=== PATIENT | male | born 1990 | race Caucasian/White ===

== ENCOUNTER 2016-12-29 13:05 | Emergency (ER) | payer OTHER ==
--- NOTE | 2016-12-29 13:27 | ERNOTE ---
Abdominal HPI - Narrative Date of Service: 12/29/16 - General Chief Complaint: Abdominal Pain Time Seen by Provider: 12/29/16 13:15 Source: patient Exam Limitations: no limitations - Immun/Allergies/Home Medications Immunizatons: IMMUNIZATION HX Immunizations Up to Date Yes History of Influenza Vaccine No Allergies/Adverse Reactions: Allergies iodine Allergy (Verified 12/29/16 13:21) Home Medications: HOME MEDICATIONS Lansoprazole/Amoxiciln/Clarith [[id number]] 1 each PO BID # 28 combo..pkg 12/29/16 [Last Taken Unknown] - History of Present Illness Narrative: Pt. comes in with c/o nausea, vomiting, and abdominal pain fotr 24 hours after he drank too much two nights ago. Pt. states that when it started yesterday he thought he had a hangover but it has not changed despite it being over 24 hours. Pt. denies any SOB, CP, diarrhea, fever, but does state that he has tremors and chills. Pt. states that he binge drinks for three days a week but does not drink at all the other days of the week. Review of Systems - Review of Systems Constitutional: Present: no symptoms reported. Absent: fever, chills, weakness , fatigue, malaise EYE: Present: no symptoms reported ENT: Present: no symptoms reported Respiratory: Present: no symptoms reported. Absent: shortness of breath, cough , wheezing Cardiology: Present: no symptoms reported. Absent: chest pain, palpitations, edema Gastrointestinal/Abdominal: Present: nausea, vomiting, diarrhea, abdominal pain Genitourinary: Present: no symptoms reported Musculoskeletal: Present: no symptoms reported. Absent: back pain, joint pain Neurological: Present: no symptoms reported. Absent: headache, dizziness/light- headedness, numbness, tingling All Other Systems: All systems neg except as marked - Patient's Past Medical History Patient History - Medical: Alcohol Abuse, Anxiety, Depression - Family History Father Family History - Cardiac/Respiratory: Other - Social History Smoking Status: Current every day smoker Have you smoked in the past 12 months: Yes - Immunizations Immunizations Up to Date: Yes History of Influenza Vaccine: No Physical Exam - Physical Exam General Appearance: Present: wd/wn, alert, no apparent distress Eye Exam: Normal inspection: bilateral, PERRL: bilateral, EOMI: bilateral Ears, Nose, Throat: Present: normal ENT inspection, normal pharynx Neck: Present: normal inspection, nontender. Absent: lymphadenopathy (R), lymphadenopathy (L) Respiratory: Present: no respiratory distress, normal breath sounds, no accessory muscle use, chest nontender, lungs clear Cardiovascular/Chest: Present: regular rate, rhythm, no murmur, normal peripheral pulses Gastrointestinal/Abdominal: Present: tenderness - mid epigastric RUQ, hepatomegaly. Absent: McBurney sign, Obturator sign, Guillermo sign Back Exam: Present: normal inspection, normal range of motion, no CVA tenderness , no vertebral tenderness Extremity Exam: Present: normal inspection, non-tender, normal range of motion, no edema Neurological Exam: Present: alert, oriented, normal mood/affect, no motor/ sensory deficits, other - tremors BUE Skin Exam: Present: diaphoresis, pallor ED Progress - Results and Orders Patient's Lab Results:: I have reviewed the patient's lab results. - Vital Signs Patient's Vital Signs:: I have reviewed the patient's vital signs. Vital Signs: Vital Signs 12/29/16 13:13 Temperature 37.0 C Pulse Rate 113 H Respiratory 20 Rate Blood Pressure 157/99 O2 Sat by Pulse 96 Oximetry - X-Ray X-Ray #1 X-Ray: abdomen Interpretation: Reviewed by me X-ray Comments: FINDINGS: Abdomen Flat W/ Upright *: No subdiaphragmatic free air. No abnormal dilation of large or small bowel. There is a small 3 mm calcification which projects over the right side of the abdomen. Osseous structures are intact. Incidental note of what appears to be mild degenerative changes of the bilateral hips. The morphology of the proximal femur/femoral head suggests possible femoral acetabular impingement. IMPRESSION: 1. Nonobstructive bowel gas pattern. 2. Indeterminate right-sided abdominal calcification. 3. Additional comments as above. Electronically signed by Alicia Wise M.D.. - Progress/Reassessment Chief Complaint: Abdominal Pain Progress:: Pain free at discharge Departure - Departure Clinical Impression: Gastritis Qualifiers: Gastritis type: alcoholic Chronicity: chronic Gastritis bleeding: without bleeding Qualified Code(s): K29.20 - Alcoholic gastritis without bleeding Disposition: Home self-care Condition: Good Instructions: Gastritis, Adult, [id number] Additional Instructions: Please follow up with primary provider in 2-3 days. Prescriptions: Lansoprazole/Amoxiciln/Clarith [[id number]] 1 each PO BID # 28 combo..pkg
[2016-12-29 13:42] LABS: Hematocrit 44.5 % (42.0-52.0); Hemoglobin 15.8 gm/dL (13.5-18.0); Mean Cell Volume 90.1 fl (78-100); Mean Corpuscular Hgb Conc 35.5 g/dl (32-36); Neutrophil # 9.9 K/mm3 (1.3-6.0); Platelet Count 263 K/mm3 (150-450); Red Blood Count 4.94 M/mm3 (4.7-6.0); White Blood Count 13.4 K/mm3 (4.0-10.5)
[2016-12-29] MEDS ORDERED: ONDANSETRON HCL/PF 2 MG/ML VIAL ONE (13:46)
[2016-12-29 13:56] LABS: ALT 29 U/L (19-67); AST 46 U/L (0-48); Albumin * 4.3 gm/dl (3.4-5.0); Alkaline Phosphatase * 70 U/L (50-170); Amylase * 39 U/L (25-115); Anion Gap 22.7 mmol/L (6.8-13.8); BUN/Creatinine Ratio 14.7 (9.0-21.6); Blood Urea Nitrogen 16 mg/dL (6-23); Ca. Corrected For Albumin 9.3 mg/dL (8.4-10.2); Calcium * 9.9 mg/dL (7.9-10.9); Carbon Dioxide 24.2 mmol/L (24-32.6); Chloride 98 mmol/L (97-106); Glucose * 95 mg/dL (70-110); Lipase 138 U/L (73-393); Potassium 3.9 mmol/L (3.4-4.6); Sodium 141 mmol/L (132-142); Total Protein 7.7 gm/dL (6.2-8.2)
[2016-12-29 13:58] LABS: Prothrombin Time (Patient) 10.9 Seconds (9.4-11.4)
[2016-12-29] MEDS: MULTIVIT INFUSN,ADULT 4,VIT K 10 ML, THIAMINE HCL 100 MG in NORMAL SALINE 1,000 ML IV SCH (14:02)
[2016-12-29] MEDS: ONDANSETRON HCL/PF 2 MG/ML VIAL IV ONE (14:02)
[2016-12-29 14:26] LABS: INR 1.05 INR (0.90-1.10)
[2016-12-29] MEDS: LIDOCAINE HCL 20 ML UDC PO ONE (14:39)
[2016-12-29] MEDS: SUCRALFATE 1 G/10 ML UDC PO ONE (14:39)
[2016-12-29] MEDS: MAG HYDROX/ALUMINUM HYD/SIMETH 30 ML UDC PO ONE (14:39)
[2016-12-29 14:52] LABS: Urine Bilirubin Negative (NEGATIVE); Urine Blood Negative /ul (NEGATIVE); Urine Ketone Large mg/dL (NEGATIVE); Urine Nitrite Negative (NEGATIVE); Urine Protein 30 mg/dL (NEGATIVE); Urine Urobilinogen Normal (NORMAL); Urine pH 7.5 pH (5.0-7.0)
[2016-12-29 15:02] LABS: Urine Appearance Clear; Urine Color Yellow; Urine WBC None Seen /hpf (0-5)
[2016-12-29 15:03] LABS: Urine Bacteria None Seen; Urine RBC None Seen /hpf (0-5)
[2016-12-29 15:12] LABS: Cocaine Ur Negative (NEGATIVE); Urine Barbiturate Negative (NEGATIVE); Urine Benzodiazepines Negative (NEGATIVE); Urine Opiates Negative (NEGATIVE); Urine PCP Negative (NEGATIVE); Urine THC Positive (NEGATIVE)
[2016-12-29 15:27] VITALS: BP 134/88
== END 2016-12-29 15:30 | disposition home or self-care (01) ==
LOC: ER 13:05
DX: K29.20 Alcoholic gastritis without bleeding (principal); Z72.0 Tobacco use
CPT/HCPCS: 36415; 74020; 80053; 80307; 81001; 82150; 83690; 85025; 85610; 96365; 99284; G0481

== ENCOUNTER 2017-03-13 08:51 | Emergency (ER) | payer OTHER ==
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
[2017-03-13] MEDS ORDERED: IBUPROFEN 600 MG TABLET PO ONE (10:17)
[2017-03-13] MEDS ORDERED: IBUPROFEN 600 MG TABLET ONE (10:19)
[2017-03-13 11:37] VITALS: BP 128/84
== END 2017-03-13 11:33 | disposition home or self-care (01) ==
LOC: ER 08:51
DX: S29.012A Strain of muscle and tendon of back wall of thorax, initial encounter (principal); W22.8XXA Striking against or struck by other objects, initial encounter; S49.92XA Unspecified injury of left shoulder and upper arm, initial encounter; F17.210 Nicotine dependence, cigarettes, uncomplicated